=== PATIENT | female | born 1965 | race Caucasian/White ===

== ENCOUNTER 2019-09-12 08:19 | Emergency (ER) | payer MEDICARE, MEDICAID ==
[2019-09-12 08:57] LABS: CHLORIDE,CL 106 mEq/L (98-106); SODIUM,NA 141 mEq/L (136-145)
[2019-09-12 09:09] VITALS: BP 174/83; PULSE 73
--- NOTE | 2019-09-12 09:39 | EDM.PDOC ---
ED HPI GENERAL MEDICAL PROBLEM - General Chief Complaint: General Stated Complaint: CHEST PAIN Time Seen by Provider: 09/12/19 08:45 Source of Information: Reports: Patient History Limitations: Reports: No Limitations - History of Present Illness INITIAL COMMENTS - FREE TEXT/NARRATIVE: Patient presents to ER with complaints of pounding in her chest. Relates was up to the bathroom this am when started. Has experienced this before but states "never lasts this long". Recently started on prednisone for URI, on day 3. She denies headache or actual chest pain. Feels more "pounding". No fevers. Does admit that she has a cough, shortness of breath related to her URI. No diaphoresis. History of hemalytic anemia since . Has always had high number of platelets. Used to get blood transfusion often, initial surveillance monitor kept hemoglobin over 9. new hematolgoist Dr. Barron, wants to prevent transfusion due to excessive iron stores. has not a transfusion for some time now. Onset: Today, Sudden Duration: Hour(s):, Improving Location: Reports: Chest Quality: Reports: Ache Severity: Moderate Associated Symptoms: Reports: Chest Pain, Cough, Shortness of Breath. Denies: Confusion, Fever/Chills, Loss of Appetite, Nausea/Vomiting, Syncope Treatments RING FACER: Reports: Other Medication(s) Other Treatments RING FACER: currently on prednisone Middle Chest Pain Score (Numeric/FACES): 2 - Related Data Allergies Allergy/AdvReac Type Severity Reaction Status Date / Time Penicillins Allergy Swelling Verified 09/12/19 08:41 Home Meds: Home Meds Mirabegron [Myrbetriq] 50 mg PO BEDTIME 08/06/15 [History] Folic Acid 0.8 mg PO BEDTIME 10/08/15 [History] traZODone 50 mg PO BEDTIME PRN 10/13/15 [History] Albuterol [Ventolin HFA] 1 inh INH Q8H PRN 08/05/17 [History] Albuterol/Ipratropium [DuoNeb 3.0-0.5 MG/3 ML] 1 inh INH QID PRN 09/12/19 [ History] Roflumilast [Daliresp] 500 mg PO DAILY 09/12/19 [History] Past Medical History HEENT History: Reports: Impaired Vision Respiratory History: Reports: COPD Genitourinary History: Reports: Other (See Below) Other Genitourinary History: stress incontinence [employer]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 Denies: Fever, Chills, Weakness, Fatigue, Decreased Appetite HEENT: Reports: Rhinitis, Sinus Problem. Denies: Ear Pain, Throat Pain Respiratory: Reports: Shortness of Breath, Cough Cardiovascular: Reports: Palpitations. Denies: Chest Pain, Edema, Lightheadedness Endocrine: Denies: Fatigue GI/Abdominal: Denies: Abdominal Pain, Nausea, Vomiting : Reports: No Symptoms Musculoskeletal: Reports: No Symptoms Skin: Reports: No Symptoms Neurological: Reports: No Symptoms ED EXAM, GENERAL - Physical Exam Exam: See Below Exam Limited By: No Limitations General Appearance: Alert, WD/WN, No Apparent Distress Ears: Normal External Exam, Normal TMs Nose: Normal Inspection, Normal Mucosa, Nasal Drainage Throat/Mouth: Normal Inspection, Normal Oropharynx Head: Normocephalic Neck: Normal Inspection, Supple, Non-Tender Respiratory/Chest: No Respiratory Distress, Wheezing Cardiovascular: Regular Rate, Rhythm GI/Abdominal: Normal Bowel Sounds, Soft, Non-Tender Extremities: Normal Inspection, No Pedal Edema Neurological: Alert, Oriented Skin Exam: Warm, Dry Course - Vital Signs Last Recorded V/S: Last Vital Signs Temp 97.2 F 09/12/19 08:54 Pulse 73 09/12/19 08:54 Resp 18 09/12/19 08:54 BP 174/83 H 09/12/19 08:54 Pulse Ox 94 L 09/12/19 08:54 - Orders/Labs/Meds Orders: Active Orders 24 hr Category Date Time Status Chest 2V [CR] Stat Exams 09/12/19 08:29 Taken Labs: Laboratory Tests 09/12/19 09/12/1920 Range/Units 08:35 08:35 08:35 WBC 21.8 H* (5.0-10.0) 10^3/uL Corrected WBC 19.8 H (5.0-10.0) 10^3/uL RBC 2.17 L (4.00-5.50) 10^6/uL Hgb 7.3 L* (12.0-16.0) g/dL Hct 24.7 L (37.0-47.0) % MCV 113.8 H (82.0-94.0) fL MCH 33.6 H (27.0-32.0) pg MCHC 29.6 L (33.0-38.0) g/dL RDW Coeff of Shailesh 14.6 (11.0-15.0) % Plt Count 1098 H* (150-400) 10^3/uL Add Manual Diff Yes Neutrophils % (Manual) 49 (35-85) % Band Neutrophils % 1 (0-5) % Lymphocytes % (Manual) 41 (21-55) % Monocytes % (Manual) 8 (2-12) % Eosinophils % (Manual) 1 (0-5) % Absolute Neutrophils 10.90 H (1.80-7.00) 10^3/uL Lymphocytes # (Manual) 8.94 H (1.00-4.80) 10^3/uL Monocytes # (Manual) 1.74 H (0.00-0.80) 10^3/uL Eosinophils # (Manual) 0.22 (0.00-0.45) 10^3/uL Nucleated RBCs 10 H (0-5) /100WBC Platelet Estimate Marked inc H (ADEQUATE) Polychromasia 2+ moderate H (NOT SEEN) Macrocytosis 3+ marked H (NOT SEEN) Target Cells 2+ moderate H (NOT SEEN) Venus Cells 1+ slight H (NOT SEEN) PT 10.0 (9.7-12.3) SEC INR 0.97 (0.92-1.18) APTT 25.0 (23.2-32.3) SEC Sodium 141 (136-145) mEq/L Potassium 3.2 L D (3.5-5.0) mEq/L Chloride 106 (98-106) mEq/L Carbon Dioxide 26 (21-32) mmol/L BUN 20 H (7-18) mg/dL Creatinine 0.8 (0.6-1.0) mg/dL Est Cr Clr Drug Dosing TNP Estimated GFR (MDRD) > 60 (>=60) mL/min Glucose 104 H (75-99) mg/dL Calcium 8.7 (8.4-10.1) mg/dL Total Bilirubin 2.2 H (0.0-1.0) mg/dL AST 20 (15-37) U/L ALT 22 (12-78) U/L Alkaline Phosphatase 127 H (46-116) U/L Lactate Dehydrogenase 185 (100-190) U/L Creatine Kinase 68 (21-215) U/L Troponin I < 0.017 (0.00-0.06) ng/mL Total Protein 7.1 (6.4-8.2) g/dL Albumin 3.7 (3.4-5.0) g/dL Lipase 286 (73-393) U/L - Re-Assessments/Exams Free Text/Narrative Re-Assessment/Exam: 09/12/19 Labs noted. WBC is high at 21.2, chronically around 19. Platelets are 1098. Hemoglobin 7.3. Cardiac enzymes normal. EKGS shows sinus rhythm. chest xray unremarkable. Did contact [facility] and spoke with Dr. Barron about patient status and labs. Recommends waiting on transfusion unless becomes more symptomatic as palpitations could be from virus, prednisone, anemia or anxiety. patient informed. Will repeat hemoglobin in 2 days. Is feeling better at this time. Departure - Departure Time of Disposition: 09:37 Disposition: Home, Self-Care 01 Condition: Fair Clinical Impression: Palpitations, Blood coagulation disorder - Discharge Information *PRESCRIPTION DRUG MONITORING PROGRAM REVIEWED*: No *COPY OF PRESCRIPTION DRUG MONITORING REPORT IN PATIENT RYDER: No Referrals: Rajinder Bustillos MD [Primary Care Provider] - Forms: ED Department Discharge Additional Instructions: 1. Rest 2. Push fluids, limit use of caffeine 3. Consider smoking cessation 4. Finish course of prednisone 5. Return in next 2-3 days for repeat hemoglobin 6. Call with any concerns or questions Sepsis Event Note - Evaluation Sepsis Screening Result: No Definite Risk - Focused Exam Vital Signs: Vital Signs Temp Pulse Resp BP Pulse Ox 09/12/19 08:54 97.2 F 73 18 174/83 H 94 L Date Exam was Performed: 09/12/19 Time Exam was Performed: 18:49 - Problem List & Annotations (1) Palpitations SNOMED Code(s): 52886519 Code(s): R00.2 - PALPITATIONS Status: Acute Priority: High - Problem List Review Problem List Initiated/Reviewed/Updated: Yes - My Orders Last 24 Hours: My Active Orders 09/12/19 08:29 Chest 2V [CR] Stat - Assessment/Plan Last 24 Hours: My Active Orders 09/12/19 08:29 Chest 2V [CR] Stat
== END 2019-09-12 09:50 | disposition home or self-care (01) ==
LOC: CC.ED 08:19
DX: R00.2 Palpitations (principal); D68.9 Coagulation defect, unspecified; J44.9 Chronic obstructive pulmonary disease, unspecified; F32.9 Major depressive disorder, single episode, unspecified; F17.210 Nicotine dependence, cigarettes, uncomplicated; Z88.0 Allergy status to penicillin; Z79.899 Other long term (current) drug therapy
CPT/HCPCS: 36415; 71046; 80053; 82550; 83615; 83690; 84484; 85025; 85610; 85730; 93005; 93010; 99284; 99285-25

== ENCOUNTER → 2020-11-07 | Day surgery (SDC) | payer MEDICARE, MEDICAID ==
[2020-11-07] MEDS: Lactated Ringers 1,000 ML IV SCH (12:20)
[2020-11-07 13:34] VITALS: BP 108/34; PULSE 61
--- NOTE | 2020-11-10 09:53 | OR ---
DATE OF OPERATION: 11/07/2020 PREOPERATIVE DIAGNOSIS: FAMILY HISTORY OF COLON CANCER. POSTOPERATIVE DIAGNOSIS: FAMILY HISTORY OF COLON CANCER. SURGEON: Rajinder Bustlilos MD PROCEDURE: SURVEILLANCE COLONOSCOPY. ANESTHESIA: MAC. COMPLICATIONS: None. SPECIMEN: None. FINDINGS: 1. Normal full-length colonoscopy. 2. Mild sigmoid diverticulosis. RECOMMENDATIONS: Followup colonoscopy every 5 years. INDICATIONS: The patient was sent by Teri Rendon for colonoscopy. It has been 5 years and she has a family history of colon cancer. DESCRIPTION OF PROCEDURE: The patient was prepped and draped, placed in the left lateral decubitus position. A lubricated Olympus colonoscope was inserted and ultimately advanced to the cecum. We were able to directly visualize the ileocecal valve. It was hard to see the appendiceal orifice. The patient had a lot of stool in the cecal pouch. We irrigated for quite some time, but we could just not clear this. Her prep was marginal. The right colon had a lot of stool left in it, and most of the left colon could be seen, but certainly smaller lesions could have been missed throughout. Upon withdrawal, throughout the entire length of the colon, I could find no signs of any polyps, masses, ulceration, or bleeding sites. No vascular abnormalities or signs of colitis. The patient does have scattered diverticula in the sigmoid colon and into the rectosigmoid junction, mild in severity. The rectal vault appeared benign. Retroflexion showed no perianal lesions. Air was suctioned and the scope removed without complication. STEVAN/ESCOBARL /[id number]
== END ==
LOC: CC.SDS 12:09
PROVIDERS: ATTEND Family Medicine
DX: Z12.11 Encounter for screening for malignant neoplasm of colon (principal); K57.30 Diverticulosis of large intestine without perforation or abscess without bleeding; F17.210 Nicotine dependence, cigarettes, uncomplicated; G47.30 Sleep apnea, unspecified; E55.9 Vitamin D deficiency, unspecified; N32.81 Overactive bladder; J44.9 Chronic obstructive pulmonary disease, unspecified; Z80.0 Family history of malignant neoplasm of digestive organs; Z88.0 Allergy status to penicillin; Z79.899 Other long term (current) drug therapy; Z98.890 Other specified postprocedural states
CPT/HCPCS: 00812; G0105; J7120

== ENCOUNTER 2021-05-19 23:19 | Emergency (ER) | payer MEDICARE, MEDICAID ==
--- NOTE | 2021-05-19 23:27 | EDM.PDOC ---
ED HPI GENERAL MEDICAL PROBLEM - General Chief Complaint: General Stated Complaint: rib pain Time Seen by Provider: 05/19/21 23:19 Source of Information: Reports: Patient History Limitations: Reports: No Limitations - History of Present Illness INITIAL COMMENTS - FREE TEXT/NARRATIVE: Gianna is a 56 year old female who presents with left chest wall pain. was leaning down in to the washing machine and "something poked in to my left side". [place] a pop and have had pain since, incident occurred yesterday. No injury. States hurts to take a deep breath. Occasional cough, chronic in nature due to history of smoking. 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 Onset: Today, Sudden Duration: Minutes:, Constant Location: Reports: Chest Quality: Reports: Ache Severity: Moderate Improves with: Reports: Rest Worsens with: Reports: Breathing (deep breaths) Context: Reports: Trauma Associated Symptoms: Reports: Cough. Denies: cough w sputum, Fever/Chills, Loss of Appetite, Shortness of Breath - Related Data Allergies Allergy/AdvReac Type Severity Reaction Status Date / Time Penicillins Allergy Swelling Verified 04/15/21 10:26 Home Meds: Home Meds Mirabegron [Myrbetriq] 50 mg PO BEDTIME 08/06/15 [History] Folic Acid 2.4 mg PO BEDTIME 10/08/15 [History] traZODone 50 - 100 mg PO BEDTIME PRN 10/13/15 [History] Albuterol [Ventolin HFA] 2 inh INH Q6H PRN 08/05/17 [History] Roflumilast [Daliresp] 500 mg PO DAILY 09/12/19 [History] Alendronate Sodium 70 mg PO WEEKLY 11/04/20 [History] Calcium Carbonate [Calcium] 600 mg PO DAILY 11/04/20 [History] Cholecalciferol (Vitamin D3) [Vitamin D3] 5,000 unit PO DAILY 11/04/20 [History] Deferasirox [Jadenu] 360 mg PO ASDIRECTED PRN 11/04/20 [History] Fluticasone Propionate [Flonase] 2 spray NASBOTH BID PRN 11/04/20 [History] Fluticasone/Umeclidin/Vilanter [Trelegy Ellipta 100-62.5-25] 1 inh INH DAILY 11/04/20 [History] Hydrocodone/Acetaminophen [Hydrocodone-Acetamin 5-325 mg] 1 - 2 tab PO Q6HR PRN 11/04/20 [History] Ipratropium/Albuterol Sulfate [Iprat-Albut 0.5-3(2.5) mg/3 ml] 1 ampule INH QID PRN 11/04/20 [History] Multivitamin [Multi-Day Vitamins] 1 tab PO DAILY 11/04/20 [History] Naproxen Sodium [Naproxen Sodium ER] 500 mg PO BID PRN 11/04/20 [History] PARoxetine HCL [Paroxetine HCl] 40 mg PO DAILY 11/04/20 [History] Topiramate 50 mg PO BEDTIME 11/04/20 [History] Past Medical History HEENT History: Reports: Impaired Vision Respiratory History: Reports: COPD Genitourinary History: Reports: Other (See Below) Other Genitourinary History: stress incontinence [employer]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: Psychiatric History: Reports: Depression, Suicide Attempt, Suicidal Ideation Hematologic History: Reports: Blood Transfusion(s), Other (See Below) Other Hematologic History: HEMALYTIC ANEMIA - Past Surgical History Female Surgical History: Reports: Tubal Ligation Social & Family History - Family History Family Medical History: No Pertinent Family History - Tobacco Use Tobacco Use Status *Q: Current Every Day Tobacco User Tobacco Use Within Last Twelve Months: Cigarettes - Caffeine Use Caffeine Use: Reports: Coffee ED ROS GENERAL - Review of Systems Review Of Systems: See Below Constitutional: Denies: Fever, Chills, Malaise, Weakness HEENT: Denies: Ear Pain, Sinus Problem, Throat Pain Respiratory: Reports: Shortness of Breath, Pleuritic Chest Pain, Cough Cardiovascular: Denies: Chest Pain, Edema, Lightheadedness Endocrine: Denies: Fatigue GI/Abdominal: Denies: Abdominal Pain, Nausea, Vomiting : Reports: No Symptoms Musculoskeletal: Reports: No Symptoms Skin: Denies: Bruising Neurological: Reports: No Symptoms ED EXAM, GENERAL - Physical Exam Exam: See Below Exam Limited By: No Limitations General Appearance: Alert, WD/WN, No Apparent Distress Ears: Normal External Exam, Normal TMs Nose: Normal Inspection, Normal Mucosa, No Blood Throat/Mouth: Normal Inspection, Normal Oropharynx Head: Normocephalic Neck: Normal Inspection, Supple, Non-Tender Respiratory/Chest: No Respiratory Distress, Decreased Breath Sounds, Other (tender to left axilla with palpation) Cardiovascular: Regular Rate, Rhythm Neurological: Alert, Oriented Skin Exam: Warm, Dry Course - Orders/Labs/Meds Orders: Active Orders 24 hr Category Date Time Status Ribs 2V w Chest Lt [CR] Stat Exams 05/19/21 23:20 Ordered - Re-Assessments/Exams Free Text/Narrative Re-Assessment/Exam: 05/19/21 23:55 Xray is negative. Discussed with patient. Departure - Departure Time of Disposition: 23:56 Disposition: Home, Self-Care 01 Condition: Good Clinical Impression: Chest wall pain - Discharge Information *PRESCRIPTION DRUG MONITORING PROGRAM REVIEWED*: No *COPY OF PRESCRIPTION DRUG MONITORING REPORT IN PATIENT RYDER: No Instructions: Chest Wall Pain, [id number] Forms: ED Department Discharge Additional Instructions: 1. Rest 2. Ice or heat to affected area 3. Ibuprofen or tylenol for discomfort 4. We will call you if any concerns with the xray 5. Follow up with your primary care provider if concerns. - My Orders Last 24 Hours: My Active Orders 05/19/21 23:20 Ribs 2V w Chest Lt [CR] Stat - Assessment/Plan Last 24 Hours: My Active Orders 05/19/21 23:20 Ribs 2V w Chest Lt [CR] Stat
[2021-05-20] MEDS: Ketorolac 60 MG/2 ML SDV IM ONE
[2021-05-20 01:02] VITALS: BP 153/68; PULSE 72
== END 2021-05-20 00:15 | disposition home or self-care (01) ==
LOC: CC.ED 23:19
DX: R07.89 Other chest pain (principal); J44.9 Chronic obstructive pulmonary disease, unspecified; F17.210 Nicotine dependence, cigarettes, uncomplicated; Z88.0 Allergy status to penicillin; Z79.899 Other long term (current) drug therapy
CPT/HCPCS: 71101-LT; 96372; 99283; J1885